=== PATIENT | female | born 1975 | race Caucasian/White ===

== ENCOUNTER 2018-10-13 00:53 | Emergency (ER) | payer OTHER ==
--- NOTE | 2018-10-13 01:03 | EDPHY ---
H & P Stated Complaint: full body rash x3 weeks, under treatment but worse Time Seen by Provider: 10/13/18 01:03 HPI/ROS: HPI CHIEF COMPLAINT: Allergic reaction, worsening rash. HISTORY OF PRESENT ILLNESS: This is a 43-year-old female, presents emergency room with a rash x3 weeks however gotten worse over the past 24-48 hours. She reports no fever, no joint pain, her rash is in a distinctive pattern of where her clothes make close contact with her skin specifically around her waist, inner thighs, over her knees and over the top of her feet. I did question her if she has new detergents soaps a dryer sheets her something that is causing her a contact dermatitis. She denies any trouble breathing, denies trouble swallowing, denies abdominal pain, denies chest pain or shortness of breath. She has a rash that is rather diffuse but mainly over the contact points of clothing, in a distinct pattern, is erythematous, warm, blanchable, no petechia purpura, on the inner thighs it is somewhat sandpaper rash. Spares the palms and soles. It itches. Mildly tender. No significant welts. She states she has had this for 3 weeks. She has been on prednisone. However got worse. She is unsure of any contact reaction. She is unsure of anything new that could be causing this. Past Medical History: Significant medical history for eczema. Past Surgical History: Denies significant surgical history Social History: Denies drugs alcohol tobacco. Family History: Noncontributory ROS REVIEW OF SYSTEMS: 10 Systems were reviewed and negative with the exception of the elements mentioned in the history of present illness. Exam Constitutional triage nursing summary reviewed, vital signs reviewed, awake/ alert. Eyes normal conjunctivae and sclera, EOMI, PERRLA. HENT normal inspection, atraumatic, moist mucus membranes, no epistaxis, neck supple/ no meningismus, no raccoon eyes. Respiratory clear to auscultation bilaterally, normal breath sounds, no respiratory distress, no wheezing. Cardiovascular rate normal, regular rhythm, no murmur, no edema, distal pulses normal. Gastrointestinal soft, non-tender, no rebound, no guarding, normal bowel sounds, no distension, no pulsatile mass. Genitourinary no CVA tenderness. Musculoskeletal no midline vertebral tenderness, full range of motion, no calf swelling, no tenderness of extremities, no meningismus, good pulses, neurovascularly intact. Skin rather diffuse erythematous rash, particularly over the inner thighs, bilaterally, additionally over the top of both feet, around her waist, and around her arms. It appears to be were close comes in close contact. It spares her back, minimal in her chest. No joint swelling on exam. No particular no purpura. No blisters. No skin sloughing. No because lesions, no palms or soles of the feet. Mainly itchy. Neurologic awake, alert and oriented x 3, AAOx3, moves all 4 extremities equally, motor intact, sensory intact, CN II-XII intact, normal cerebellar, normal vision, normal speech. Psychiatric normal mood/affect. Heme/Lymph/Immune no lymphadenopathy. Differential Diagnosis: Includes but is not limited to in a particular order allergic reaction, contact dermatitis, poison salima, poison oak, Escamilla-Marty syndrome, TEN, vasculitis Medical Decision Making: Plan for this patient IV establishment, IV fluid bolus , IV Solu-Medrol, IV Benadryl, IV Zantac, and re-evaluate. This is been going on for 3 weeks. It does not appear to be a toxic rash appears to be more of a contact dermatitis. Re-evaluation: 0345: Patient re-evaluated resting comfortably no acute distress. She resides IV Solu-Medrol, IV Benadryl and IV Zantac and doing much improved. Her rash is much improved. Denies any significant itching at this time. She is requesting discharge home. Plan will be for Benadryl, Pepcid, prednisone for the next 3 days. I Do recommend she follows up with her primary care doctor I do recommend she return emergency room she develops worsening symptoms Additionally recommend following up with Dermatology Source: Patient - Personal History Current Tetanus/Diphtheria Vaccine: Yes Current Tetanus Diphtheria and Acellular Pertussis (TDAP): Yes - Medical/Surgical History Hx Asthma: No Hx Chronic Respiratory Disease: No Hx Diabetes: No Hx Cardiac Disease: No Hx Renal Disease: No Hx Cirrhosis: No Hx Alcoholism: No Hx HIV/AIDS: No Hx Splenectomy or Spleen Trauma: No Other PMH: Denies med/ surg - Social History Smoking Status: Never smoked Constitutional: Initial Vital Signs Temperature (C) 37.2 C 10/13/18 00:55 Heart Rate 78 10/13/18 00:55 Respiratory Rate 18 10/13/18 00:55 Blood Pressure 107/76 10/13/18 00:55 O2 Sat (%) 98 10/13/18 00:55 O2 Delivery Mode Room Air Allergies/Adverse Reactions: Penicillins Allergy (Verified 10/13/18 00:58) Home Medications: Medication Instructions Recorded Famotidine [Pepcid 20 MG (*)] 20 mg PO BID #6 tab 10/13/18 diphenhydrAMINE [Benadryl 25 MG 25 mg PO BID #6 tab 10/13/18 (*)] predniSONE 60 mg PO DAILY #9 tab 10/13/18 Medical Decision Making - Data Points Medications Given: Discontinued Medications Diphenhydramine HCl (Benadryl Injection) 50 mg IVP EDNOW ONE Stop: 10/13/18 01:10 Last Admin: 10/13/18 01:16 Dose: 50 mg Sodium Chloride (Ns) 1,000 mls @ 0 mls/hr IV ONCE ONE; Wide Open PRN Reason: Protocol Stop: 10/13/18 01:10 Last Admin: 10/13/18 01:16 Dose: 1,000 mls Methylprednisolone Sodium Succinate (Solu-Medrol) 125 mg IVP EDNOW ONE Stop: 10/13/18 01:10 Last Admin: 10/13/18 01:16 Dose: 125 mg Ranitidine HCl (Zantac) 50 mg IVP EDNOW ONE Stop: 10/13/18 01:10 Last Admin: 10/13/18 01:16 Dose: 50 mg Departure - Departure Disposition: Home, Routine, Self-Care Clinical Impression: Dermatitis Allergic reaction Qualifiers: Encounter type: initial encounter Qualified Code(s): T78.40XA - Allergy, unspecified, initial encounter Condition: Good Instructions: Contact Dermatitis (ED), Urticaria (ED), Allergy Testing (ED) Additional Instructions: 1. Return to the emergency room if develops worsening symptoms questions or concerns. 2. Prednisone, Benadryl, Pepcid or Zantac for the next 3 days. 3. Return to the ER if worse 4. Follow up with an statement clerks manager. Referrals: JOSUÉ MARTIN [Primary Care Provider] - As per Instructions Prescriptions: diphenhydrAMINE [Benadryl 25 MG (*)] 25 mg PO BID #6 tab Famotidine [Pepcid 20 MG (*)] 20 mg PO BID #6 tab predniSONE 60 mg PO DAILY #9 tab
[2018-10-13] MEDS ORDERED: NS 1,000 ML IV ONE (01:09)
[2018-10-13] MEDS ORDERED: RANITIDINE 50 MG/2 ML VIAL IVP ONE (01:09)
[2018-10-13] MEDS ORDERED: methylPREDNISolone SOD SUCC 125 MG/2 ML VIAL IVP ONE (01:09)
[2018-10-13 03:54] VITALS: BP 108/60
== END 2018-10-13 03:53 | disposition home or self-care (01) ==
DX: L30.9 Dermatitis, unspecified (principal); T78.40XA Allergy, unspecified, initial encounter; E86.9 Volume depletion, unspecified
CPT/HCPCS: 96374; J1200; J2780; J2930